=== PATIENT | female | born 2000 | race Caucasian/White ===

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

== ENCOUNTER → 2023-04-02 11:39 | Outpatient (BNVA) | payer MEDICAID, SELFPAY | PROVIDERS: Family Provider Electrodiagnostic Medicine; PCP Electrodiagnostic Medicine; Visit Provider Emergency Medicine | DX: R52 Pain, unspecified (principal) | CPT/HCPCS: 87400 ==